=== PATIENT | female | born 1945 | race Caucasian/White ===

== ENCOUNTER 2018-09-07 16:24 | Emergency (ER) | payer OTHER ==
[2018-09-07] MEDS ORDERED: TDAP ADULT 0.5 ML INJ (BOOSTRIX) IM ONE ×2 (16:40→17:00)
[2018-09-07] MEDS ORDERED: AMOXICILLIN/CLAVULANATE POT 875/125 MG TAB PO ONE (16:41)
--- NOTE | 2018-09-07 16:45 | EDPHY ---
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 Her dog has up-to-date vaccinations. This occurred shortly prior to arrival. Not through and through. No palmar involvement. No underlying osseous discomfort. No foreign body sensation. Tetanus is out-of-date. PHYSICAL EXAM (Prior to examination, patient consented to physical exam, hands were washed and my usual and customary physical exam procedures followed) 1) GENERAL: Well-developed, well-nourished, alert and oriented. Appears to be in no acute distress. 2) HEAD: Normocephalic 3) HEENT: Pupils equal, round, reactive to light bilaterally. 4) LUNGS: Breathing comfortably. 5) MUSCULOSKELETAL: On the left hand dorsal aspect between the 1st and 2nd metacarpal patient Soft compartments. Normal coloration. Opposition intact. Abduction, abduction intact. Flexion extension intact. No deficits. There is no evidence of infection. Negative kanavel. No evidence of cellulitis. 6) SKIN: Puncture wound measuring 5 mm on the dorsal aspect only. There is no palmar involvement. No evidence of through and through puncture wound. Localized ecchymosis noted. 7) VASCULAR: pulses and cap refill present are brisk 8) NEUROLOGIC: Radial, ulnar, median nerve function intact with no deficits appreciated on exam DIFFERENTIAL DIAGNOSIS: in no particular order including but not limited to fracture, sprain, compartment syndrome Procedure: Splint A Velcro thumb spica splint was applied by ER animal health technician in order to minimize stress on the puncture wound site. After application of the splint I returned and re-examined the patient. The splint was adequately immobilizing the joint and distal to the splint the patient's circulation and sensation were intact. Patient shows no signs of compartment syndrome. Was given orthopedic precautions. (Gillian Merritt) Constitutional: Initial Vital Signs Temperature (C) 36.6 C 09/07/18 16:28 Heart Rate 64 09/07/18 16:28 Respiratory Rate 18 09/07/18 16:28 Blood Pressure 179/68 H 09/07/18 16:28 O2 Sat (%) 99 09/07/18 16:28 O2 Delivery Mode Room Air Allergies/Adverse Reactions: No Known Allergies Allergy (Unverified 09/07/18 16:27) Home Medications: Medication Instructions Recorded Amoxicillin/Clavulanate Pot 875 mg PO BID #10 tab 09/07/18 [Augmentin 875 mg tab] Cartia Xt 09/07/18 LORazepam 09/07/18 Losartan Potassium 09/07/18 Pepcid AC 09/07/18 Prilosec 09/07/18 MDM/Departure - MDM Medications Given: Discontinued Medications Amoxicillin/Clavulanate Potassium (Augmentin 875mg) 875 mg PO EDNOW ONE PRN Reason: Protocol Stop: 09/07/18 16:42 Last Admin: 09/07/18 16:53 Dose: 875 mg Diphtheria/Tetanus/Acell Pertussis (Boostrix) 0.5 ml IM .ONCE ONE Stop: 09/07/18 17:01 Last Admin: 09/07/18 16:53 Dose: 0.5 ml ED Course/Re-evaluation: In the emergency department the patient's wound was anesthetized with 1% lidocaine with epinephrine copiously irrigated by ER staff and will be allowed to heal via secondary intention. Her tetanus has been updated. Augmentin antibiotic therapy is initiated. Given Velcro thumb spica no to reduce stress on the bite site. She is returning to her home tomorrow. I recommended 2 day recheck either in local emergency department or with her primary care provider. Given wound precautions instructions. She feels comfortable being discharged. Patient feels comfortable being discharged. All questions and concerns addressed by myself. Patient given my usual and customary discharge precautions and instructions regarding their clinical impression. Care of patient under supervision of secondary supervising physician Dr Black. (Gillian Merritt) I did not see this patient while she was in the emergency department. However her care was discussed with the PA while the patient was in the department. I agree with treatment plan and management (Cristopher Black) - Depart Disposition: Home, Routine, Self-Care Clinical Impression: Dog bite of left hand Condition: Good Instructions: Animal Bite (ED) Additional Instructions: Return to the ER if you develop redness, swelling, discharge, warmth to the wound, red streaks going up your arm, or any other symptoms that concern you. Prescriptions: Amoxicillin/Clavulanate Pot [Augmentin 875 mg tab] 875 mg PO BID #10 tab Referrals: Brent Saunders MD [Medical Doctor] - 1-2 days without fail (I recommend you follow up in 2 days either with your primary care provider or at a local emergency department.)
[2018-09-07 17:03] VITALS: BP 146/88
== END 2018-09-07 17:26 | disposition home or self-care (01) ==
DX: S61.432A Puncture wound without foreign body of left hand, initial encounter (principal); Z23 Encounter for immunization; W54.0XXA Bitten by dog, initial encounter; Y93.K9 Activity, other involving animal care
CPT/HCPCS: 90471; 90715; 99283; L3807